=== PATIENT | female | born 1945 | race Caucasian/White ===

== ENCOUNTER → 2017-01-08 | Outpatient (CLI) | payer MEDICARE, MEDICAID ==
[~2017-01-08] MED LIST: CHOL5000 PO; CYAN25009 PO; HYDR25TA11 PO; LACT1CAP11 PO; LISI5TAB7 PO; MAGN400T36 PO; OMNIPAQUE 350 MG/ML, 150 ML BOTTLE ONE; TROS20TA2 PO; WHEA1POW5 PO
== END | disposition home or self-care (01) ==
LOC: RAD 10:15
PROVIDERS: ATTEND Family Medicine
DX: K57.30 Diverticulosis of large intestine without perforation or abscess without bleeding (principal); R31.9 Hematuria, unspecified
CPT/HCPCS: 74177; Q9967

== ENCOUNTER → 2017-04-10 | Outpatient (CLI) | payer MEDICARE, MEDICAID ==
[~2017-04-10] MED LIST changes: -OMNIPAQUE 350 MG/ML, 150 ML BOTTLE ONE
== END | disposition home or self-care (01) ==
LOC: WOUND 08:21
PROVIDERS: ATTEND Physician Assistant
DX: L89.892 Pressure ulcer of other site, stage 2 (principal); E11.622 Type 2 diabetes mellitus with other skin ulcer; L98.491 Non-pressure chronic ulcer of skin of other sites limited to breakdown of skin; I10 Essential (primary) hypertension; E66.01 Morbid (severe) obesity due to excess calories; G47.30 Sleep apnea, unspecified; J45.909 Unspecified asthma, uncomplicated; G43.909 Migraine, unspecified, not intractable, without status migrainosus; F32.9 Major depressive disorder, single episode, unspecified; F41.9 Anxiety disorder, unspecified; Z86.12 Personal history of poliomyelitis; Z68.41 Body mass index [BMI] 40.0-44.9, adult; Z87.891 Personal history of nicotine dependence
CPT/HCPCS: G0463; WOU0463

== ENCOUNTER → 2017-04-20 | Outpatient (CLI) | payer MEDICARE, MEDICAID | LOC: WOUND 09:30 | PROVIDERS: ATTEND Physician Assistant | DX: E11.622 Type 2 diabetes mellitus with other skin ulcer (principal); L98.491 Non-pressure chronic ulcer of skin of other sites limited to breakdown of skin; L89.892 Pressure ulcer of other site, stage 2; E66.01 Morbid (severe) obesity due to excess calories; G47.30 Sleep apnea, unspecified; I10 Essential (primary) hypertension; J45.909 Unspecified asthma, uncomplicated; F41.9 Anxiety disorder, unspecified; F32.9 Major depressive disorder, single episode, unspecified; Z68.41 Body mass index [BMI] 40.0-44.9, adult; Z87.891 Personal history of nicotine dependence | CPT/HCPCS: G0463; WOU0463 ==

== ENCOUNTER → 2017-09-02 | Outpatient (CLI) | payer MEDICARE, MEDICAID | END | disposition home or self-care (01) | LOC: CFH 08:31 | PROVIDERS: ATTEND Pain Medicine Interventional Pain Medicine | DX: M43.16 Spondylolisthesis, lumbar region (principal); M48.061 Spinal stenosis, lumbar region without neurogenic claudication; M51.36 Other intervertebral disc degeneration, lumbar region; M51.26 Other intervertebral disc displacement, lumbar region; M25.78 Osteophyte, vertebrae; G89.29 Other chronic pain | CPT/HCPCS: 72148 ==

== ENCOUNTER → 2018-10-12 | Outpatient (CLI) | payer MEDICARE, MEDICAID ==
[~2018-10-12] MED LIST changes: +ACET325T14 PO; +SIMV40TA PO
== END | disposition home or self-care (01) ==
LOC: CFH 09:55
PROVIDERS: ATTEND Nurse Practitioner Primary Care
DX: N63.22 Unspecified lump in the left breast, upper inner quadrant (principal)
CPT/HCPCS: 76641; 77065; G0279

== ENCOUNTER 2018-10-22 09:34 | Outpatient (CLI) | payer MEDICARE, MEDICAID ==
[2018-10-22] MEDS ORDERED: SODIUM BICARBONATE 4.0%, 5ML ONE (10:30)
[2018-10-22] MEDS ORDERED: LIDOCAINE 1%-EPI 1:100K, 20ML ONE (10:30)
[2018-10-22] MEDS ORDERED: LIDOCAINE 1%, 20ML ONE (10:30)
[2018-12-08] MEDS ORDERED: EZET10TA18 PO (15:58)
[2018-12-08] MEDS ORDERED: TIZA2TAB PO (15:58)
[2018-12-08] MEDS ORDERED: CRIS60OI TP (15:58)
[2018-12-08] MEDS ORDERED: DICL100G19 TP (15:58)
[2018-12-08] MEDS ORDERED: CHOL200024 PO (15:58)
[2018-12-08] MEDS ORDERED: OXYB5TAB7 PO (15:58)
[2018-12-08] MEDS ORDERED: ASPI-496 PO (15:58)
[2018-12-08] MEDS ORDERED: BIOTIN PO (15:58)
[2018-12-08] MEDS ORDERED: SERT25TA3 PO (15:58)
== END 2018-10-22 23:59 | disposition home or self-care (01) ==
LOC: CFH 09:34
PROVIDERS: ATTEND Obstetrics & Gynecology Gynecology
DX: D05.12 Intraductal carcinoma in situ of left breast (principal); I10 Essential (primary) hypertension; Z88.0 Allergy status to penicillin; Z91.011 Allergy to milk products; Z98.890 Other specified postprocedural states
CPT/HCPCS: 19083; 77065; 88305; 88341; 88342; 88360; 88361; 88377; J3490; 19285; 76942

== ENCOUNTER → 2018-12-08 | Outpatient (CLI) | payer MEDICARE, MEDICAID ==
[~2018-12-08] MED LIST changes: +ASPI-496 PO; +BIOTIN PO; +CHOL200024 PO; +CRIS60OI TP; +DICL100G19 TP; +EZET10TA18 PO; +OXYB5TAB7 PO; +SERT25TA3 PO; +TIZA2TAB PO
[2018-12-08 16:34] LABS: ALANINE AMINOTRANSFERASE 24 U/L (12-78); ALBUMIN 3.8 g/dL (3.4-5.0); ANION GAP 8 mmol/L (5-15); CALCIUM 9.4 mg/dL (8.5-10.1); CHLORIDE 111 mmol/L (98-107); CREATININE 0.76 mg/dL (0.55-1.02)
[2018-12-08 16:36] LABS: ALKALINE PHOSPHATASE 79 U/L (45-117); BILIRUBIN,TOTAL 0.3 mg/dL (0.2-1.0); TOTAL PROTEIN 7.2 g/dL (6.4-8.2)
== END | disposition home or self-care (01) ==
LOC: STAR 15:01
PROVIDERS: ATTEND Surgery
DX: Z01.818 Encounter for other preprocedural examination (principal); I45.2 Bifascicular block
CPT/HCPCS: 36415; 80053; 93005

== ENCOUNTER 2018-12-13 07:24 | Day surgery (SDC) | payer MEDICARE, MEDICAID ==
[~2018-12-13] VITALS: Ht 170.2 cm; Wt 117.0 kg
[~2018-12-13 07:24] MED LIST changes: +BUPIVACAINE/PF-EPI 0.5% 1:200K ONE; +ISOSULFAN BLUE 10 MG/ML, 5ML IV ONE
[2018-12-13] MEDS ORDERED: LACTATED RINGERS 1,000 ML IV SCH (08:11)
[2018-12-13 08:12] VITALS: BP 132/77
[2018-12-13] MEDS ORDERED: MIDAZOLAM 1 MG/ML, 2ML ONE (09:27)
[2018-12-13] MEDS ORDERED: FENTANYL PF 100 MCG/2ML ONE ×2 (09:27→10:46)
[2018-12-13] MEDS ORDERED: PROPOFOL 10 MG/ML, 20ML ONE (09:54)
[2018-12-13] MEDS ORDERED: DEXAMETHASONE 4 MG/ML, 1ML ONE (09:54)
[2018-12-13] MEDS ORDERED: ONDANSETRON 2MG/ML, 2ML ONE (09:54)
[2018-12-13] MEDS ORDERED: CEFAZOLIN 1,000 MG ONE (09:54)
[2018-12-13] MEDS ORDERED: DIAZEPAM 5 MG/ML, 2ML IVPush PRN (10:30)
[2018-12-13] MEDS ORDERED: PROMETHAZINE 25 MG/ML, 1ML IV PRN (10:30)
[2018-12-13] MEDS ORDERED: ALBUTEROL SULFATE 2.5 MG/3 ML NPPB PRN (10:30)
[2018-12-13] MEDS ORDERED: hydrALAzine 20 MG/ML, 1ML IV PRN (10:30)
[2018-12-13] MEDS ORDERED: LABETALOL 5MG/ML, 20ML IV PRN (10:30)
[2018-12-13] MEDS ORDERED: ACETAMINOPHEN 325 MG TABLET PO PRN (10:30)
[2018-12-13] MEDS ORDERED: MEPERIDINE/PF 25MG/0.5ML IVPush PRN (10:30)
[2018-12-13] MEDS ORDERED: HYDROmorphone 2 MG/ML, 1ML IVPush PRN (10:30)
[2018-12-13] MEDS ORDERED: OXYcodone 5 MG/5 ML ORAL.SOL UDC PO PRN (10:30)
[2018-12-13] MEDS ORDERED: FENTANYL PF 100 MCG/2ML IV PRN (10:30)
[2018-12-13] MEDS ORDERED: OXYcodone 5 MG/5 ML ORAL.SOL UDC ONE (11:12)
[2018-12-13] MEDS ORDERED: hydrALAzine 20 MG/ML, 1ML ONE (11:40)
[2018-12-13] MEDS ORDERED: HYDROcodone/APAP 5/325 TABLET ONE (14:42)
[2018-12-13] MEDS ORDERED: HYDROcodone/APAP 5/325 TABLET PO PRN (15:00)
== END 2018-12-13 15:30 | disposition home or self-care (01) ==
LOC: SDC 07:24 → EDSTATUS 10:00 → OUT 15:30
PROVIDERS: ATTEND Surgery
DX: D05.12 Intraductal carcinoma in situ of left breast (principal); R59.1 Generalized enlarged lymph nodes; E11.9 Type 2 diabetes mellitus without complications; E78.5 Hyperlipidemia, unspecified; I10 Essential (primary) hypertension; Z98.890 Other specified postprocedural states; Z88.6 Allergy status to analgesic agent; Z88.1 Allergy status to other antibiotic agents; Z88.5 Allergy status to narcotic agent; Z88.0 Allergy status to penicillin
CPT/HCPCS: 19301; 38525; 38792; 82962; 88307; A9541; J0360; J0690; J1100; J2250; J2405; J2704; J3010; J7120

== ENCOUNTER → 2019-03-21 | Outpatient (CLI) | payer MEDICARE, MEDICAID ==
[~2019-03-21] MED LIST changes: -BUPIVACAINE/PF-EPI 0.5% 1:200K ONE; -ISOSULFAN BLUE 10 MG/ML, 5ML IV ONE
== END | disposition home or self-care (01) ==
LOC: WOUND 11:47
PROVIDERS: ATTEND Internal Medicine
DX: E11.622 Type 2 diabetes mellitus with other skin ulcer (principal); L89.892 Pressure ulcer of other site, stage 2; B35.4 Tinea corporis; G89.29 Other chronic pain; M54.5 Low back pain; I10 Essential (primary) hypertension; G47.30 Sleep apnea, unspecified; G43.909 Migraine, unspecified, not intractable, without status migrainosus; F41.9 Anxiety disorder, unspecified; F32.9 Major depressive disorder, single episode, unspecified; E66.01 Morbid (severe) obesity due to excess calories; Z68.41 Body mass index [BMI] 40.0-44.9, adult; Z85.3 Personal history of malignant neoplasm of breast; Z87.891 Personal history of nicotine dependence; Z90.49 Acquired absence of other specified parts of digestive tract
CPT/HCPCS: G0463

== ENCOUNTER 2019-04-25 13:18 | Outpatient (CLI) | payer MEDICARE, MEDICAID ==
[~2019-04-25 13:18] MED LIST changes: -EZET10TA18 PO; +EZET10TA70 PO; +HYDR-826 PO; -HYDR25TA11 PO; -TIZA2TAB PO; +TIZA2TAB2 PO
== END 2019-04-25 23:59 | disposition home or self-care (01) ==
LOC: WOUND 13:18
PROVIDERS: ATTEND Internal Medicine
DX: E11.622 Type 2 diabetes mellitus with other skin ulcer (principal); L89.899 Pressure ulcer of other site, unspecified stage; B35.4 Tinea corporis; G89.29 Other chronic pain; M54.5 Low back pain; I10 Essential (primary) hypertension; G47.30 Sleep apnea, unspecified; G43.909 Migraine, unspecified, not intractable, without status migrainosus; F41.9 Anxiety disorder, unspecified; F32.9 Major depressive disorder, single episode, unspecified; E66.01 Morbid (severe) obesity due to excess calories; Z68.41 Body mass index [BMI] 40.0-44.9, adult; Z85.3 Personal history of malignant neoplasm of breast; Z87.891 Personal history of nicotine dependence; Z90.49 Acquired absence of other specified parts of digestive tract
CPT/HCPCS: 97597; 97598

== ENCOUNTER 2019-05-16 13:02 | Outpatient (CLI) | payer MEDICARE, MEDICAID | END 2019-05-16 23:59 | disposition home or self-care (01) | LOC: WOUND 13:02 | PROVIDERS: ATTEND Internal Medicine | DX: S31.103D Unspecified open wound of abdominal wall, right lower quadrant without penetration into peritoneal cavity, subsequent encounter (principal); E11.622 Type 2 diabetes mellitus with other skin ulcer; L89.892 Pressure ulcer of other site, stage 2; L98.492 Non-pressure chronic ulcer of skin of other sites with fat layer exposed; E65 Localized adiposity; B35.4 Tinea corporis; G89.29 Other chronic pain; M54.5 Low back pain; I10 Essential (primary) hypertension; G47.30 Sleep apnea, unspecified; G43.909 Migraine, unspecified, not intractable, without status migrainosus; F41.9 Anxiety disorder, unspecified; F32.9 Major depressive disorder, single episode, unspecified; E66.01 Morbid (severe) obesity due to excess calories; Z68.41 Body mass index [BMI] 40.0-44.9, adult; Z85.3 Personal history of malignant neoplasm of breast; Z87.891 Personal history of nicotine dependence; Z90.49 Acquired absence of other specified parts of digestive tract; X58.XXXD Exposure to other specified factors, subsequent encounter | CPT/HCPCS: 97597; 97598 ==

== ENCOUNTER 2019-07-18 13:02 | Outpatient (CLI) | payer MEDICARE, MEDICAID | END 2019-07-18 23:59 | disposition home or self-care (01) | LOC: WOUND 13:02 | PROVIDERS: ATTEND Internal Medicine | DX: E11.622 Type 2 diabetes mellitus with other skin ulcer (principal); L89.899 Pressure ulcer of other site, unspecified stage; B35.4 Tinea corporis; G89.29 Other chronic pain; M54.5 Low back pain; I10 Essential (primary) hypertension; G47.30 Sleep apnea, unspecified; G43.909 Migraine, unspecified, not intractable, without status migrainosus; F41.9 Anxiety disorder, unspecified; F32.9 Major depressive disorder, single episode, unspecified; E66.01 Morbid (severe) obesity due to excess calories; Z68.41 Body mass index [BMI] 40.0-44.9, adult; Z85.3 Personal history of malignant neoplasm of breast; Z87.891 Personal history of nicotine dependence; Z90.49 Acquired absence of other specified parts of digestive tract | CPT/HCPCS: G0463 ==

== ENCOUNTER 2019-10-27 18:37 | Emergency (ER) | payer MEDICARE, MEDICAID ==
[~2019-10-27] VITALS: Ht 170.2 cm; Wt 113.0 kg
[~2019-10-27 18:37] MED LIST changes: +OXYB5TAB10 PO; -OXYB5TAB7 PO
[2019-10-27 18:41] VITALS: BP 121/51
--- NOTE | 2019-10-27 18:55 | NUR ---
LISSA. REPORT RECEIVED FROM EMS. PT C/O R ARM NUBNESS FEELING STARTED TODAY. SPEECH CLEAR. FACE SYMETRICAL. PT'S AOX4. RESPS EVEN AND UNLABORED. NO ANY OTHER SYMPTOMS. BP/SPO2 MONITORS IN PLACE. CALL LIGHT WITHIN REACH.
--- NOTE | 2019-10-27 18:58 | NUR ---
REPORT FROM JACQUELIN KNUTSON. ASSUMING CARE OF PT
--- NOTE | 2019-10-27 18:58 | NUR ---
MD AT BEDSIDE TO ASSESS PT
[2019-10-27 19:22] LABS: BASOPHILS # (AUTO) 0.06 x10^3/uL (0-0.1); BASOPHILS % (AUTO) 1 % (0-1); EOSINOPHILS # (AUTO) 0.68 x10^3/uL (0-0.4); EOSINOPHILS % (AUTO) 5 % (1-7); LYMPHOCYTES # (AUTO) 4.47 x10^3/uL (1-3.4); LYMPHOCYTES % (AUTO) 36 % (22-44); MD NO; MEAN CORPUSCULAR HEMOGLOBIN 28.8 pg (27.0-34.8); MEAN CORPUSCULAR HGB CONC 33.2 g/dL (32.4-35.8); MEAN CORPUSCULAR VOLUME 86.8 fL (80-100); MEAN PLATELET VOLUME 10.2 fL (7.4-10.4); MONOCYTES % (AUTO) 9 % (2-9); NEUTROPHILS # (AUTO) 6.15 x10^3/uL (1.8-6.8); NEUTROPHILS % (AUTO) 49 % (42-75); PLATELET COUNT 296 x10^3/uL (130-400); RED CELL DISTRIBUTION WIDTH 14.8 % (9.6-15.2)
[2019-10-27 19:28] LABS: INTERNATIONAL NORMALIZED RATIO 1.01 (0.93-1.1); PROTHROMBIN TIME 10.7 Seconds (9.6-11.5)
--- NOTE | 2019-10-27 20:26 | NUR ---
CT CALLED TO FOLLOW UP ON DELAY OF PT TO CT AT THIS TIME.
--- NOTE | 2019-10-27 20:36 | NUR ---
PT IN CT
[2019-10-27] MEDS ORDERED: OMNIPAQUE 350 MG/ML, 100ML BOTTLE ONE (20:49)
--- NOTE | 2019-10-27 21:53 | NUR ---
Patient/Caregiver given discharge instructions and they have confirmed that they understand the instructions. Patient wheeled to discharge with son. iv dc prior to pt leaving facility
== END 2019-10-27 21:55 | disposition home or self-care (01) ==
LOC: ED 20:55
DX: G56.01 Carpal tunnel syndrome, right upper limb (principal); I63.9 Cerebral infarction, unspecified; I10 Essential (primary) hypertension; E11.9 Type 2 diabetes mellitus without complications; E78.00 Pure hypercholesterolemia, unspecified; R53.1 Weakness; Z86.718 Personal history of other venous thrombosis and embolism; Z85.3 Personal history of malignant neoplasm of breast
CPT/HCPCS: 70450; 70496; 70498; 80047; 85025; 85610; 85730; 93005; 99284; Q9967

== ENCOUNTER → 2019-12-16 | Outpatient (CLI) | payer MEDICARE, MEDICAID | END | disposition home or self-care (01) | LOC: RAD 14:16 | PROVIDERS: ATTEND Family Medicine | DX: I82.461 Acute embolism and thrombosis of right calf muscular vein (principal); M79.89 Other specified soft tissue disorders ==

== ENCOUNTER 2020-09-11 14:18 | Outpatient (CLI) | payer MEDICARE, MEDICAID ==
[~2020-09-11 14:18] MED LIST changes: +APIX5TAB PO; +ATOR40TA78 PO; +CEFT1FRO2 INJ; +DOXE25CA PO; +GABA300C10 PO; +LISI-170 PO; +Sulfameth./Trimethoprim Ds PO; -TIZA2TAB2 PO; +TIZA2TAB4 PO
== END 2020-09-11 23:59 | disposition home or self-care (01) ==
LOC: WOUND 14:18
PROVIDERS: ATTEND Nurse Practitioner Family
DX: I87.331 Chronic venous hypertension (idiopathic) with ulcer and inflammation of right lower extremity (principal); L03.115 Cellulitis of right lower limb; E11.622 Type 2 diabetes mellitus with other skin ulcer; L97.811 Non-pressure chronic ulcer of other part of right lower leg limited to breakdown of skin; F32.9 Major depressive disorder, single episode, unspecified; E66.9 Obesity, unspecified; G89.29 Other chronic pain; G47.30 Sleep apnea, unspecified; F41.9 Anxiety disorder, unspecified; J45.909 Unspecified asthma, uncomplicated; G47.00 Insomnia, unspecified; G43.909 Migraine, unspecified, not intractable, without status migrainosus; Z85.3 Personal history of malignant neoplasm of breast; Z87.891 Personal history of nicotine dependence; Z90.49 Acquired absence of other specified parts of digestive tract; Z88.0 Allergy status to penicillin; Z68.41 Body mass index [BMI] 40.0-44.9, adult
CPT/HCPCS: 97597; G0463

== ENCOUNTER → 2020-11-21 | Outpatient (CLI) | payer MEDICARE, MEDICAID ==
[~2020-11-21] MED LIST changes: +SERT-331 PO; -SERT25TA3 PO; +TIZA-106 PO; -TIZA2TAB4 PO
== END | disposition home or self-care (01) ==
LOC: WOUND 10:24
PROVIDERS: ATTEND Internal Medicine
DX: I87.331 Chronic venous hypertension (idiopathic) with ulcer and inflammation of right lower extremity (principal); E11.622 Type 2 diabetes mellitus with other skin ulcer; I70.238 Atherosclerosis of native arteries of right leg with ulceration of other part of lower leg; L97.811 Non-pressure chronic ulcer of other part of right lower leg limited to breakdown of skin; I70.202 Unspecified atherosclerosis of native arteries of extremities, left leg; L03.115 Cellulitis of right lower limb; F32.9 Major depressive disorder, single episode, unspecified; G89.29 Other chronic pain; G47.30 Sleep apnea, unspecified; F41.9 Anxiety disorder, unspecified; J45.909 Unspecified asthma, uncomplicated; G47.00 Insomnia, unspecified; G43.909 Migraine, unspecified, not intractable, without status migrainosus; E66.9 Obesity, unspecified; Z68.41 Body mass index [BMI] 40.0-44.9, adult; Z85.3 Personal history of malignant neoplasm of breast; Z87.891 Personal history of nicotine dependence; Z90.49 Acquired absence of other specified parts of digestive tract; Z88.0 Allergy status to penicillin; Z79.01 Long term (current) use of anticoagulants
CPT/HCPCS: 97597; G0463

== ENCOUNTER → 2020-12-04 | Outpatient (CLI) | payer MEDICARE, MEDICAID | END | disposition home or self-care (01) | LOC: WOUND 13:45 | PROVIDERS: ATTEND Nurse Practitioner Family | DX: I87.331 Chronic venous hypertension (idiopathic) with ulcer and inflammation of right lower extremity (principal); E11.622 Type 2 diabetes mellitus with other skin ulcer; I70.238 Atherosclerosis of native arteries of right leg with ulceration of other part of lower leg; L97.811 Non-pressure chronic ulcer of other part of right lower leg limited to breakdown of skin; I70.202 Unspecified atherosclerosis of native arteries of extremities, left leg; L03.115 Cellulitis of right lower limb; F32.9 Major depressive disorder, single episode, unspecified; G89.29 Other chronic pain; G47.30 Sleep apnea, unspecified; F41.9 Anxiety disorder, unspecified; J45.909 Unspecified asthma, uncomplicated; G47.00 Insomnia, unspecified; G43.909 Migraine, unspecified, not intractable, without status migrainosus; E66.9 Obesity, unspecified; Z68.41 Body mass index [BMI] 40.0-44.9, adult; Z85.3 Personal history of malignant neoplasm of breast; Z87.891 Personal history of nicotine dependence; Z90.49 Acquired absence of other specified parts of digestive tract; Z88.0 Allergy status to penicillin; Z79.01 Long term (current) use of anticoagulants | CPT/HCPCS: 97597 ==

== ENCOUNTER → 2020-12-18 | Outpatient (CLI) | payer MEDICARE, MEDICAID | END | disposition home or self-care (01) | LOC: WOUND 14:41 | PROVIDERS: ATTEND Nurse Practitioner Family | DX: I87.331 Chronic venous hypertension (idiopathic) with ulcer and inflammation of right lower extremity (principal); E11.622 Type 2 diabetes mellitus with other skin ulcer; I70.238 Atherosclerosis of native arteries of right leg with ulceration of other part of lower leg; L97.811 Non-pressure chronic ulcer of other part of right lower leg limited to breakdown of skin; I70.202 Unspecified atherosclerosis of native arteries of extremities, left leg; L03.115 Cellulitis of right lower limb; F32.9 Major depressive disorder, single episode, unspecified; G89.29 Other chronic pain; G47.30 Sleep apnea, unspecified; F41.9 Anxiety disorder, unspecified; J45.909 Unspecified asthma, uncomplicated; G47.00 Insomnia, unspecified; G43.909 Migraine, unspecified, not intractable, without status migrainosus; E66.9 Obesity, unspecified; Z68.41 Body mass index [BMI] 40.0-44.9, adult; Z85.3 Personal history of malignant neoplasm of breast; Z87.891 Personal history of nicotine dependence; Z90.49 Acquired absence of other specified parts of digestive tract; Z88.0 Allergy status to penicillin; Z79.01 Long term (current) use of anticoagulants | CPT/HCPCS: 97597; 97598 ==

== ENCOUNTER → 2020-12-25 | Outpatient (CLI) | payer MEDICARE, MEDICAID | END | disposition home or self-care (01) | LOC: WOUND 14:06 | PROVIDERS: ATTEND Nurse Practitioner Family | DX: I87.331 Chronic venous hypertension (idiopathic) with ulcer and inflammation of right lower extremity (principal); E11.622 Type 2 diabetes mellitus with other skin ulcer; I70.238 Atherosclerosis of native arteries of right leg with ulceration of other part of lower leg; L97.812 Non-pressure chronic ulcer of other part of right lower leg with fat layer exposed; I70.202 Unspecified atherosclerosis of native arteries of extremities, left leg; L03.115 Cellulitis of right lower limb; F32.9 Major depressive disorder, single episode, unspecified; G89.29 Other chronic pain; G47.30 Sleep apnea, unspecified; F41.9 Anxiety disorder, unspecified; J45.909 Unspecified asthma, uncomplicated; G47.00 Insomnia, unspecified; G43.909 Migraine, unspecified, not intractable, without status migrainosus; E66.9 Obesity, unspecified; Z68.41 Body mass index [BMI] 40.0-44.9, adult; Z85.3 Personal history of malignant neoplasm of breast; Z87.891 Personal history of nicotine dependence; Z90.49 Acquired absence of other specified parts of digestive tract; Z88.0 Allergy status to penicillin; Z79.01 Long term (current) use of anticoagulants | CPT/HCPCS: 97597; 97598 ==

== ENCOUNTER → 2021-01-01 | Outpatient (CLI) | payer MEDICARE, MEDICAID | END | disposition home or self-care (01) | LOC: WOUND 14:44 | PROVIDERS: ATTEND Nurse Practitioner Family | DX: I87.331 Chronic venous hypertension (idiopathic) with ulcer and inflammation of right lower extremity (principal); E11.622 Type 2 diabetes mellitus with other skin ulcer; I70.238 Atherosclerosis of native arteries of right leg with ulceration of other part of lower leg; L97.812 Non-pressure chronic ulcer of other part of right lower leg with fat layer exposed; I70.202 Unspecified atherosclerosis of native arteries of extremities, left leg; L03.115 Cellulitis of right lower limb; F32.9 Major depressive disorder, single episode, unspecified; G89.29 Other chronic pain; G47.30 Sleep apnea, unspecified; F41.9 Anxiety disorder, unspecified; J45.909 Unspecified asthma, uncomplicated; E66.9 Obesity, unspecified; Z68.41 Body mass index [BMI] 40.0-44.9, adult; Z85.3 Personal history of malignant neoplasm of breast; Z87.891 Personal history of nicotine dependence; Z90.49 Acquired absence of other specified parts of digestive tract; Z88.0 Allergy status to penicillin; Z79.01 Long term (current) use of anticoagulants | CPT/HCPCS: 29581 ==

== ENCOUNTER 2021-01-08 14:09 | Outpatient (CLI) | payer MEDICARE, MEDICAID | END 2021-01-08 23:59 | disposition home or self-care (01) | LOC: WOUND 14:09 | PROVIDERS: ATTEND Nurse Practitioner Family | DX: I89.0 Lymphedema, not elsewhere classified (principal); E11.622 Type 2 diabetes mellitus with other skin ulcer; I70.238 Atherosclerosis of native arteries of right leg with ulceration of other part of lower leg; L97.818 Non-pressure chronic ulcer of other part of right lower leg with other specified severity; I70.202 Unspecified atherosclerosis of native arteries of extremities, left leg; L03.115 Cellulitis of right lower limb; F32.9 Major depressive disorder, single episode, unspecified; G89.29 Other chronic pain; G47.30 Sleep apnea, unspecified; F41.9 Anxiety disorder, unspecified; J45.909 Unspecified asthma, uncomplicated; E66.9 Obesity, unspecified; Z68.41 Body mass index [BMI] 40.0-44.9, adult; Z85.3 Personal history of malignant neoplasm of breast; Z87.891 Personal history of nicotine dependence; Z90.49 Acquired absence of other specified parts of digestive tract; Z88.0 Allergy status to penicillin; Z79.01 Long term (current) use of anticoagulants | CPT/HCPCS: 29581 ==

== ENCOUNTER 2021-01-15 14:15 | Outpatient (CLI) | payer MEDICARE, MEDICAID | END 2021-01-15 23:59 | disposition home or self-care (01) | LOC: WOUND 14:15 | PROVIDERS: ATTEND Nurse Practitioner Family | DX: I87.2 Venous insufficiency (chronic) (peripheral) (principal); I70.203 Unspecified atherosclerosis of native arteries of extremities, bilateral legs; E11.8 Type 2 diabetes mellitus with unspecified complications; F32.9 Major depressive disorder, single episode, unspecified; G89.29 Other chronic pain; G47.30 Sleep apnea, unspecified; F41.9 Anxiety disorder, unspecified; J45.909 Unspecified asthma, uncomplicated; G43.909 Migraine, unspecified, not intractable, without status migrainosus; G47.00 Insomnia, unspecified; E66.9 Obesity, unspecified; Z68.41 Body mass index [BMI] 40.0-44.9, adult; Z85.3 Personal history of malignant neoplasm of breast; Z87.891 Personal history of nicotine dependence; Z90.49 Acquired absence of other specified parts of digestive tract; Z88.0 Allergy status to penicillin; Z79.01 Long term (current) use of anticoagulants | CPT/HCPCS: 99214; G0463 ==

== ENCOUNTER 2021-01-30 14:00 | Outpatient (CLI) | payer MEDICARE, MEDICAID | END 2021-01-30 23:59 | disposition home or self-care (01) | LOC: WOUND 14:00 | PROVIDERS: ATTEND Internal Medicine | DX: I89.0 Lymphedema, not elsewhere classified (principal); I70.203 Unspecified atherosclerosis of native arteries of extremities, bilateral legs; I87.323 Chronic venous hypertension (idiopathic) with inflammation of bilateral lower extremity; E11.628 Type 2 diabetes mellitus with other skin complications; F32.9 Major depressive disorder, single episode, unspecified; G89.29 Other chronic pain; G47.30 Sleep apnea, unspecified; F41.9 Anxiety disorder, unspecified; J45.909 Unspecified asthma, uncomplicated; G43.909 Migraine, unspecified, not intractable, without status migrainosus; G47.00 Insomnia, unspecified; E66.01 Morbid (severe) obesity due to excess calories; Z68.41 Body mass index [BMI] 40.0-44.9, adult; Z85.3 Personal history of malignant neoplasm of breast; Z87.891 Personal history of nicotine dependence; Z90.49 Acquired absence of other specified parts of digestive tract; Z88.0 Allergy status to penicillin; Z79.01 Long term (current) use of anticoagulants | CPT/HCPCS: 97597 ==

== ENCOUNTER → 2021-02-13 | Outpatient (CLI) | payer MEDICARE, MEDICAID | END | disposition home or self-care (01) | LOC: WOUND 14:09 | PROVIDERS: ATTEND Internal Medicine | DX: E11.622 Type 2 diabetes mellitus with other skin ulcer (principal); I70.238 Atherosclerosis of native arteries of right leg with ulceration of other part of lower leg; I87.331 Chronic venous hypertension (idiopathic) with ulcer and inflammation of right lower extremity; L97.818 Non-pressure chronic ulcer of other part of right lower leg with other specified severity; I87.322 Chronic venous hypertension (idiopathic) with inflammation of left lower extremity; I70.202 Unspecified atherosclerosis of native arteries of extremities, left leg; I89.0 Lymphedema, not elsewhere classified; F32.9 Major depressive disorder, single episode, unspecified; G89.29 Other chronic pain; G47.30 Sleep apnea, unspecified; F41.9 Anxiety disorder, unspecified; J45.909 Unspecified asthma, uncomplicated; G43.909 Migraine, unspecified, not intractable, without status migrainosus; G47.00 Insomnia, unspecified; E66.01 Morbid (severe) obesity due to excess calories; Z68.41 Body mass index [BMI] 40.0-44.9, adult; Z85.3 Personal history of malignant neoplasm of breast; Z87.891 Personal history of nicotine dependence; Z90.49 Acquired absence of other specified parts of digestive tract; Z88.0 Allergy status to penicillin; Z79.01 Long term (current) use of anticoagulants | CPT/HCPCS: G0463 ==

== ENCOUNTER 2021-05-14 09:43 | Outpatient (CLI) | payer MEDICARE, MEDICAID | END 2021-05-14 23:59 | disposition home or self-care (01) | LOC: WOUND 09:43 | PROVIDERS: ATTEND Internal Medicine | DX: E11.622 Type 2 diabetes mellitus with other skin ulcer (principal); I87.331 Chronic venous hypertension (idiopathic) with ulcer and inflammation of right lower extremity; L97.811 Non-pressure chronic ulcer of other part of right lower leg limited to breakdown of skin; I89.0 Lymphedema, not elsewhere classified; F32.9 Major depressive disorder, single episode, unspecified; G89.29 Other chronic pain; G47.30 Sleep apnea, unspecified; F41.9 Anxiety disorder, unspecified; J45.909 Unspecified asthma, uncomplicated; G43.909 Migraine, unspecified, not intractable, without status migrainosus; G47.00 Insomnia, unspecified; E66.01 Morbid (severe) obesity due to excess calories; Z68.41 Body mass index [BMI] 40.0-44.9, adult; Z85.3 Personal history of malignant neoplasm of breast; Z87.891 Personal history of nicotine dependence; Z90.49 Acquired absence of other specified parts of digestive tract; Z88.0 Allergy status to penicillin; Z79.01 Long term (current) use of anticoagulants | CPT/HCPCS: 29581; 97597; 97598 ==

== ENCOUNTER 2021-05-17 11:24 | Outpatient (CLI) | payer MEDICARE, MEDICAID | END 2021-05-17 23:59 | disposition home or self-care (01) | LOC: WOUND 11:24 | PROVIDERS: ATTEND Internal Medicine | DX: I87.331 Chronic venous hypertension (idiopathic) with ulcer and inflammation of right lower extremity (principal); E11.622 Type 2 diabetes mellitus with other skin ulcer; L97.811 Non-pressure chronic ulcer of other part of right lower leg limited to breakdown of skin; I89.0 Lymphedema, not elsewhere classified; F32.9 Major depressive disorder, single episode, unspecified; G89.29 Other chronic pain; G47.30 Sleep apnea, unspecified; F41.9 Anxiety disorder, unspecified; J45.909 Unspecified asthma, uncomplicated; G43.909 Migraine, unspecified, not intractable, without status migrainosus; G47.00 Insomnia, unspecified; E66.01 Morbid (severe) obesity due to excess calories; Z68.41 Body mass index [BMI] 40.0-44.9, adult; Z85.3 Personal history of malignant neoplasm of breast; Z87.891 Personal history of nicotine dependence; Z90.49 Acquired absence of other specified parts of digestive tract; Z88.0 Allergy status to penicillin; Z79.01 Long term (current) use of anticoagulants | CPT/HCPCS: 29581 ==

== ENCOUNTER 2021-05-21 10:34 | Outpatient (CLI) | payer MEDICARE, MEDICAID | END 2021-05-21 23:59 | disposition home or self-care (01) | LOC: WOUND 10:34 | PROVIDERS: ATTEND Nurse Practitioner Family | DX: I87.331 Chronic venous hypertension (idiopathic) with ulcer and inflammation of right lower extremity (principal); E11.622 Type 2 diabetes mellitus with other skin ulcer; L97.811 Non-pressure chronic ulcer of other part of right lower leg limited to breakdown of skin; I89.0 Lymphedema, not elsewhere classified; F32.9 Major depressive disorder, single episode, unspecified; G89.29 Other chronic pain; G47.30 Sleep apnea, unspecified; F41.9 Anxiety disorder, unspecified; J45.909 Unspecified asthma, uncomplicated; G43.909 Migraine, unspecified, not intractable, without status migrainosus; G47.00 Insomnia, unspecified; E66.01 Morbid (severe) obesity due to excess calories; Z68.41 Body mass index [BMI] 40.0-44.9, adult; Z85.3 Personal history of malignant neoplasm of breast; Z87.891 Personal history of nicotine dependence; Z90.49 Acquired absence of other specified parts of digestive tract; Z88.0 Allergy status to penicillin; Z79.01 Long term (current) use of anticoagulants | CPT/HCPCS: 29581 ==